=== PATIENT | male | born 1960 | race Hispanic/Latino ===

== ENCOUNTER → 2020-02-01 | Outpatient (CLI) | payer BC, OTHER ==
[~2020-02-01] MED LIST: GLIPIZIDE5 MG PO; LORATADINE10 MG PO; METFORMIN HCL1000 MG PO; MONTELUKAST SOD10 MG PO; PRAVACHOL40 MG PO
== END ==
LOC: RAD 05:00 → EDSTATUS 02-07 10:30
PROVIDERS: ATTEND Internal Medicine Gastroenterology
DX: Z01.818 Encounter for other preprocedural examination (principal); K92.1 Melena; R13.10 Dysphagia, unspecified; R63.4 Abnormal weight loss; E11.9 Type 2 diabetes mellitus without complications; Z68.24 Body mass index [BMI] 24.0-24.9, adult; Z53.8 Procedure and treatment not carried out for other reasons; Z11.59 Encounter for screening for other viral diseases
CPT/HCPCS: 93005; U0002